=== PATIENT | female | born 1985 | race Caucasian/White ===

== ENCOUNTER → 2020-05-21 | Outpatient (CLI) | payer BC | END | disposition home or self-care (01) | LOC: LAB SHORT 10:46 → LAB 10:46 | DX: D22.5 Melanocytic nevi of trunk (principal) | CPT/HCPCS: 88305 ==

== ENCOUNTER → 2022-09-17 | Outpatient (CLI) | payer BC | END | disposition home or self-care (01) | LOC: LAB SHORT 14:57 → LAB 14:57 | DX: A49.9 Bacterial infection, unspecified (principal); L70.0 Acne vulgaris | CPT/HCPCS: 87070 ==

== ENCOUNTER → 2022-11-11 | Outpatient (CLI) | payer BC | END | disposition home or self-care (01) | LOC: LAB SHORT 15:29 | DX: L30.9 Dermatitis, unspecified (principal); L70.0 Acne vulgaris | CPT/HCPCS: 87070; 87205 ==